=== PATIENT | male | born 1960 | race Two or more races ===

== ENCOUNTER 2021-11-15 12:36 | Inpatient (IN) | payer OTHER ==
[2021-11-15 14:05] VITALS: BMI 31.5
[2021-11-15] MEDS ORDERED: MAGNESIUM CITRATE 300 ML BOTTLE PO PRN (15:03)
[2021-11-15] MEDS ORDERED: MAGNESIUM HYDROX 2400MG/30ML ORAL SUSPENSION 30 ML CUP PO PRN (15:03)
[2021-11-15] MEDS ORDERED: ACETAMINOPHEN 325 MG TABLET (FP) PO PRN (15:03)
[2021-11-15] MEDS ORDERED: LOPERAMIDE HCL 2 MG CAPSULE PO PRN (15:03)
[2021-11-15] MEDS ORDERED: P-EPHED 60MG/TRIPROLIDI 2.5MG TABLET PO PRN (15:03)
[2021-11-15] MEDS ORDERED: NICOTINE 10 MG CARTRIDGE (INHALER) IH PRN (15:03)
[2021-11-15] MEDS ORDERED: guaiFENesin 200 MG/10 ML 10 ML UNIT-DOSE CUPS PO PRN (15:03)
[2021-11-15] MEDS ORDERED: MAG HYDROX/AL HYDROX/SIMETH 30 ML UNIT-DOSE CUP PO PRN (15:03)
[2021-11-15] MEDS ORDERED: ALBUTEROL SO4 HFA INHALER IH PRN (15:16)
[2021-11-15] MEDS ORDERED: hydrOXYzine PAMOATE 25 MG CAPSULE (FP) PO SCH (18:00)
[2021-11-15] MEDS: NICOTINE 7 MG/24 HOURS TOPICAL PATCH TD SCH (19:43)
[2021-11-15] MEDS: PRENATAL VITAMINS W/ FOLIC ACID TABLET (FP) PO SCH (19:43)
[2021-11-15] MEDS: THIAMINE HCL 100 MG TABLET (FP) PO SCH (21:12)
[2021-11-15] MEDS: MELATONIN 5 MG TABLETS PO SCH (21:12)
[2021-11-15] MEDS: IBUPROFEN 400 MG TABLET (FP) PO PRN (21:14)
[2021-11-15] MEDS: MOMETASONE FUROATE 220 MCG/IH INHALER IH SCH (21:16)
[2021-11-15] MEDS: BUDESONIDE/FORMETEROL FUMARATE 80/4.5 mcg INHALER IH SCH (21:16)
[2021-11-15] MEDS: hydrOXYzine PAMOATE 25 MG CAPSULE (FP) PO PRN (21:17)
[2021-11-15] MEDS: propRANOLol HCL 10 MG TABLET PO SCH (21:47)
[2021-11-15] MEDS ORDERED: busPIRone HCL 5 MG TABLET PO ONE (22:00)
[2021-11-16] MEDS: hydrOXYzine PAMOATE 25 MG CAPSULE (FP) PO PRN ×2 (02:15→21:12)
[2021-11-16] MEDS: propRANOLol HCL 10 MG TABLET PO SCH ×3 (06:19→21:42)
[2021-11-16] MEDS: BUDESONIDE/FORMETEROL FUMARATE 80/4.5 mcg INHALER IH SCH ×2 (10:17→21:12)
[2021-11-16] MEDS: HYDROCHLOROTHIAZIDE 25 MG TABLET (FP) PO SCH (10:18)
[2021-11-16] MEDS: PRENATAL VITAMINS W/ FOLIC ACID TABLET (FP) PO SCH (10:18)
[2021-11-16] MEDS: amLODIPine BESYLATE 5 MG TABLET (FP) PO SCH (10:18)
[2021-11-16] MEDS: NICOTINE 7 MG/24 HOURS TOPICAL PATCH TD SCH (10:18)
[2021-11-16 10:30] LABS: HEMATOCRIT 43.2 % (35.4-49); HEMOGLOBIN 14.1 GM/dL (11.7-16.9); MCH 29.3 pg (25.7-33.7); MCHC 32.7 g/dl (32.0-35.9); MEAN CELL VOLUME 89.7 fl (80-96); MEAN PLT VOLUME 8.6 fl (7.5-11.1); PLATELET COUNT 365 10^3/uL (134-434); RBC 4.81 M/mm3 (4.00-5.60); RDW 14.3 % (11.9-15.9); WHITE BLOOD COUNT 6.8 K/mm3 (4.0-10.0)
[2021-11-16 10:34] LABS: CALCIUM 9.7 mg/dL (8.5-10.1)
[2021-11-16 10:35] LABS: ALBUMIN 3.4 g/dl (3.4-5.0); BLOOD UREA NITROGEN 19.8 mg/dL (7-18)
[2021-11-16 10:38] LABS: CREATININE 0.9 mg/dL (0.55-1.3)
[2021-11-16 10:39] LABS: BILIRUBIN,TOTAL 0.2 mg/dL (0.2-1); TOT PROT 7.1 g/dl (6.4-8.2)
[2021-11-16] MEDS: IBUPROFEN 400 MG TABLET (FP) PO PRN (10:57)
[2021-11-16] MEDS ORDERED: SERTRALINE HCL 50 MG TABLET (FP) PO ONE (11:55)
[2021-11-16] MEDS ORDERED: busPIRone HCL 10 MG TABLET (FP) PO ONE (11:56)
[2021-11-16 13:32] LABS: PH,URINE 7.5 (5.0-8.0); URINE APPEARANCE CLEAR; URINE BILIRUBIN NEGATIVE (NEGATIVE); URINE COLOR YELLOW; URINE GLUCOSE (UA) NEGATIVE (NEGATIVE); URINE KETONE NEGATIVE (NEGATIVE); URINE LEUK ESTERASE NEGATIVE (NEGATIVE); URINE NITRITE NEGATIVE (NEGATIVE); URINE PROTEIN NEGATIVE (NEGATIVE); URINE UROBILINOGEN 0.2 mg/dL (0.2-1.0)
[2021-11-16] MEDS: busPIRone HCL 10 MG TABLET (FP) PO SCH (21:12)
[2021-11-16] MEDS: traZODone HCL 50 MG TABLET (FP) PO SCH (21:12)
[2021-11-16] MEDS: MELATONIN 5 MG TABLETS PO SCH (21:13)
[2021-11-16] MEDS: MOMETASONE FUROATE 220 MCG/IH INHALER IH SCH (21:42)
[2021-11-16] MEDS: THIAMINE HCL 100 MG TABLET (FP) PO SCH (21:43)
[2021-11-17] MEDS: IBUPROFEN 400 MG TABLET (FP) PO PRN ×2 (06:17→14:43)
[2021-11-17] MEDS: propRANOLol HCL 10 MG TABLET PO SCH ×3 (06:17→21:04)
[2021-11-17] MEDS: busPIRone HCL 10 MG TABLET (FP) PO SCH ×2 (09:56→21:04)
[2021-11-17] MEDS: HYDROCHLOROTHIAZIDE 25 MG TABLET (FP) PO SCH (09:56)
[2021-11-17] MEDS: BUDESONIDE/FORMETEROL FUMARATE 80/4.5 mcg INHALER IH SCH ×2 (09:57→21:33)
[2021-11-17] MEDS: NICOTINE 7 MG/24 HOURS TOPICAL PATCH TD SCH (09:57)
[2021-11-17] MEDS: PRENATAL VITAMINS W/ FOLIC ACID TABLET (FP) PO SCH (09:57)
[2021-11-17] MEDS: amLODIPine BESYLATE 5 MG TABLET (FP) PO SCH (09:57)
[2021-11-17] MEDS: SERTRALINE HCL 50 MG TABLET (FP) PO SCH (09:57)
[2021-11-17] MEDS ORDERED: GABAPENTIN 300 MG CAPSULE PO ONE (10:30)
[2021-11-17] MEDS ORDERED: BUPRENORPHINE/NALOXONE 4 MG/1 MG FILM PACKET SL ONE (11:00)
[2021-11-17] MEDS ORDERED: GABAPENTIN 300 MG CAPSULE PO SCH (14:00)
[2021-11-17] MEDS: THIAMINE HCL 100 MG TABLET (FP) PO SCH (21:04)
[2021-11-17] MEDS: traZODone HCL 50 MG TABLET (FP) PO SCH (21:04)
[2021-11-17] MEDS: MELATONIN 5 MG TABLETS PO SCH (21:05)
[2021-11-17] MEDS: MOMETASONE FUROATE 220 MCG/IH INHALER IH SCH (21:05)
[2021-11-17] MEDS: GABAPENTIN 300 MG CAPSULE PO SCH (21:06)
[2021-11-17] MEDS: hydrOXYzine PAMOATE 25 MG CAPSULE (FP) PO PRN (21:06)
[2021-11-18] MEDS: propRANOLol HCL 10 MG TABLET PO SCH ×3 (06:20→21:13)
[2021-11-18] MEDS: GABAPENTIN 300 MG CAPSULE PO SCH ×3 (06:20→21:14)
[2021-11-18] MEDS: HYDROCHLOROTHIAZIDE 25 MG TABLET (FP) PO SCH (10:02)
[2021-11-18] MEDS: busPIRone HCL 10 MG TABLET (FP) PO SCH ×2 (10:02→21:13)
[2021-11-18] MEDS: SERTRALINE HCL 50 MG TABLET (FP) PO SCH (10:02)
[2021-11-18] MEDS: PRENATAL VITAMINS W/ FOLIC ACID TABLET (FP) PO SCH (10:03)
[2021-11-18] MEDS: BUPRENORPHINE/NALOXONE 8 MG/2 MG FILM PACKET SL SCH (10:03)
[2021-11-18] MEDS: BUDESONIDE/FORMETEROL FUMARATE 80/4.5 mcg INHALER IH SCH ×2 (10:03→21:13)
[2021-11-18] MEDS: NICOTINE 7 MG/24 HOURS TOPICAL PATCH TD SCH (10:03)
[2021-11-18] MEDS: amLODIPine BESYLATE 5 MG TABLET (FP) PO SCH (10:03)
[2021-11-18 16:59] LABS: SYPHILIS W/ RPR CONF REACTIVE (NONREACTIVE)
[2021-11-18] MEDS: traZODone HCL 50 MG TABLET (FP) PO SCH (21:13)
[2021-11-18] MEDS: MELATONIN 5 MG TABLETS PO SCH (21:14)
[2021-11-18] MEDS: MOMETASONE FUROATE 220 MCG/IH INHALER IH SCH (21:14)
[2021-11-18] MEDS: THIAMINE HCL 100 MG TABLET (FP) PO SCH (21:14)
[2021-11-19] MEDS: GABAPENTIN 300 MG CAPSULE PO SCH ×3 (06:16→21:03)
[2021-11-19] MEDS: propRANOLol HCL 10 MG TABLET PO SCH ×3 (06:16→21:03)
[2021-11-19] MEDS: busPIRone HCL 10 MG TABLET (FP) PO SCH ×2 (09:00→21:03)
[2021-11-19] MEDS: BUDESONIDE/FORMETEROL FUMARATE 80/4.5 mcg INHALER IH SCH ×2 (09:00→21:01)
[2021-11-19] MEDS: HYDROCHLOROTHIAZIDE 25 MG TABLET (FP) PO SCH (09:00)
[2021-11-19] MEDS: PRENATAL VITAMINS W/ FOLIC ACID TABLET (FP) PO SCH (09:01)
[2021-11-19] MEDS: amLODIPine BESYLATE 5 MG TABLET (FP) PO SCH (09:01)
[2021-11-19] MEDS: BUPRENORPHINE/NALOXONE 8 MG/2 MG FILM PACKET SL SCH (09:01)
[2021-11-19] MEDS: SERTRALINE HCL 50 MG TABLET (FP) PO SCH (09:01)
[2021-11-19] MEDS: NICOTINE 7 MG/24 HOURS TOPICAL PATCH TD SCH (09:01)
[2021-11-19] MEDS: IBUPROFEN 400 MG TABLET (FP) PO PRN (11:38)
[2021-11-19] MEDS: hydrOXYzine PAMOATE 25 MG CAPSULE (FP) PO PRN ×2 (14:26→21:05)
[2021-11-19] MEDS ORDERED: FLUOCINONIDE 0.05% CREAM (15 GM TUBE) TP PRN (15:32)
[2021-11-19] MEDS: MELATONIN 5 MG TABLETS PO SCH (21:01)
[2021-11-19] MEDS: THIAMINE HCL 100 MG TABLET (FP) PO SCH (21:01)
[2021-11-19] MEDS: traZODone HCL 50 MG TABLET (FP) PO SCH (21:03)
[2021-11-19] MEDS: MOMETASONE FUROATE 220 MCG/IH INHALER IH SCH (21:04)
[2021-11-20] MEDS: IBUPROFEN 400 MG TABLET (FP) PO PRN ×2 (00:31→06:34)
[2021-11-20] MEDS: GABAPENTIN 300 MG CAPSULE PO SCH ×3 (06:34→21:19)
[2021-11-20] MEDS: propRANOLol HCL 10 MG TABLET PO SCH ×3 (06:34→21:19)
[2021-11-20 07:40] VITALS: TEMP 97.3
[2021-11-20] MEDS: busPIRone HCL 10 MG TABLET (FP) PO SCH ×2 (09:01→21:19)
[2021-11-20] MEDS: HYDROCHLOROTHIAZIDE 25 MG TABLET (FP) PO SCH (09:01)
[2021-11-20] MEDS: BUPRENORPHINE/NALOXONE 8 MG/2 MG FILM PACKET SL SCH (09:02)
[2021-11-20] MEDS: NICOTINE 7 MG/24 HOURS TOPICAL PATCH TD SCH (09:02)
[2021-11-20] MEDS: SERTRALINE HCL 50 MG TABLET (FP) PO SCH (09:02)
[2021-11-20] MEDS: PRENATAL VITAMINS W/ FOLIC ACID TABLET (FP) PO SCH (09:02)
[2021-11-20] MEDS: BUDESONIDE/FORMETEROL FUMARATE 80/4.5 mcg INHALER IH SCH ×2 (09:02→22:38)
[2021-11-20] MEDS: amLODIPine BESYLATE 5 MG TABLET (FP) PO SCH (09:02)
[2021-11-20] MEDS: hydrOXYzine PAMOATE 25 MG CAPSULE (FP) PO PRN ×2 (09:03→21:19)
[2021-11-20 13:29] VITALS: RESP 18
[2021-11-20] MEDS ORDERED: NIFEdipine E.R 60 MG TABLET ONE (20:42)
[2021-11-20] MEDS: MELATONIN 5 MG TABLETS PO SCH (21:18)
[2021-11-20] MEDS: traZODone HCL 50 MG TABLET (FP) PO SCH (21:18)
[2021-11-20] MEDS: THIAMINE HCL 100 MG TABLET (FP) PO SCH (21:18)
[2021-11-20] MEDS: MOMETASONE FUROATE 220 MCG/IH INHALER IH SCH (22:38)
[2021-11-21 05:03] VITALS: BP 146/78; PULSE 93
== END 2021-11-21 05:00 | disposition left against medical advice (07) | DRG 894 ==
LOC: YASAS 12:36 → Y3E 14:53
PROVIDERS: ADMIT Allergy & Immunology; ATTEND Psychiatry & Neurology Pain Medicine
PROC: HZ42ZZZ Group Counseling for Substance Abuse Treatment, Cognitive-Behavioral (ICD-10-PCS; principal; 2021-11-15)
DX: F11.20 Opioid dependence, uncomplicated (principal); F14.20 Cocaine dependence, uncomplicated; F33.2 Major depressive disorder, recurrent severe without psychotic features; F10.20 Alcohol dependence, uncomplicated; F41.9 Anxiety disorder, unspecified; F43.10 Post-traumatic stress disorder, unspecified; I10 Essential (primary) hypertension; Z99.89 Dependence on other enabling machines and devices; Z88.1 Allergy status to other antibiotic agents
CPT/HCPCS: 36415; 80053; 81003; 82962; 85027; 86593; 86780; 86803; C9803-CS; U0003; U0005